=== PATIENT | male | born 2005 | race Caucasian/White ===

== ENCOUNTER 2024-03-29 22:40 | Emergency (ER) | payer SELFPAY ==
[2024-03-29 22:50] VITALS: BP 151/92; PULSE 65; RESP 17; TEMP 36.1; O2SAT 99
== END 2024-03-29 22:50 | disposition left against medical advice (07) ==
LOC: ANHED 23:56
DX: N50.812 Left testicular pain (principal); N50.811 Right testicular pain
CPT/HCPCS: 99199

== ENCOUNTER 2024-03-31 15:25 | Emergency (ER) | payer SELFPAY ==
--- NOTE | ~2024-03-31 | US_ITS ---
EXAMINATION: US scrotum doppler DATE: 03/31/2024 16:14 INDICATION: right sided testicular pain . TECHNIQUE: Grayscale and Doppler ultrasound images of the testes were obtained. COMPARISON: None. FINDINGS: The right testis measures cm. The left testis measures cm. No testicular mass. There is sli ghtly increased vascularity in the right testicle. The right epididymis is enlarged with increased va scular flow. The left epididymis is normal with normal vascular flow. Tiny left epididymal cyst. Ther e is no varicocele. Small right hydrocele. IMPRESSION: Right epididymitis. Increased vascular flow in the right testicle could be reactive hyperemia or cy y orchitis. Small right hydrocele. Reviewed, dictated and finalized at location [facility]. IMPRESSION: Right epididymitis. Increased vascular flow in the right testicle could be reac tive hyperemia or early orchitis. Small right hydrocele.
[2024-03-31 15:49] VITALS: BP 144/89; PULSE 71; RESP 16; TEMP 36.8; O2SAT 98
[2024-03-31 18:32] LABS: Add Urine Microscopic? NO; Appearance Urine Clear (Clear); Bilirubin Urine Negative (Negative); Blood Urine Negative (Negative); Color Urine Yellow (Yellow); Glucose Urine UA Negative (Negative); Ketones Urine Negative (Negative); Leukocyte Esterase Ur Negative LEU/UL (Negative); Nitrate Urine Negative (Negative); Protein Urine Negative (Negative); Specific Grav Ur 1.008 (1.001-1.035); Urobilinogen Urine 0.2 mg/dL (<2.0); pH Urine 7.5 (5.0-9.0)
--- NOTE | 2024-03-31 18:35 | ED.MALEGU ---
HPI - Male Genitourinary General Chief complaint: Urogenital-Male Stated complaint: testicular pain Time Seen by Provider: 03/31/24 17:54 History of Present Illness HPI Narrative: This is a 19-year-old male with no pertinent past medical history who presents with right-sided testicular pain for the last few days. Patient is stating the pain comes and goes in waves. Not worse with any positional changes. Not associated with the dysuria, hematuria or difficulty in the restroom otherwise. Patient has no nausea, vomiting, fever, chills. No trauma to the area. Not sexually active. With otherwise is normal state of health. Related Data Allergies Allergy/AdvReac Type Severity Reaction Status Date / Time diphenhydramine Allergy Other Verified 03/29/24 22:55 [From Benadryl] Review of Systems Review of Systems: As reviewed above in HPI Exam Narrative: GENERAL: [Well-appearing, well-nourished, and in no acute distress.] HEAD: [Normocephalic, atraumatic.] EYES: [PERRLA and EOMI.] ENT: Nares clear, no rhinorrhea or epistaxis. Mucous membranes moist. NECK: Supple. CHEST: [Clear to auscultation. No respiratory distress.] HEART: [Regular rate and rhythm]. No murmur heard. [Normal peripheral pulses.] ABDOMEN: [Soft, nondistended], [nontender], [No rigidity or guarding] GENITOURINARY: The right testis is slightly lower lying on the left but no tenderness on palpation of the epididymis or the testis itself. No hernias appreciated the inguinal canal. No swelling, redness, or overlying erythema. No discharge from the penile shaft. EXTREMITIES: Normal range of motion. [No edema.] SKIN: Warm, dry, no rash. NEURO: [No focal deficits]. Alert and oriented [x3.] PSYCH: [Normal mood and affect.] Course Vital Signs Vital signs: Vital Signs Temperature 36.8 C 03/31/24 15:49 Pulse Rate 71 03/31/24 15:49 Respiratory Rate 16 03/31/24 15:49 Blood Pressure 144/89 H 03/31/24 15:49 Pulse Oximetry 98 03/31/24 15:49 Oxygen Delivery Room Air 03/31/24 15:49 Temperature 36.8 C 03/31/24 15:49 Pulse Rate 71 03/31/24 15:49 Respiratory Rate 16 03/31/24 15:49 Blood Pressure 144/89 H 03/31/24 15:49 Pulse Oximetry 98 03/31/24 15:49 Oxygen Delivery Room Air 03/31/24 15:49 MDM - Male Genitourinary MDM Narrative Medical decision making narrative: This is a 19-year-old male presenting with right-sided intermittent testicular pain. His examination is very reassuring without any concerning features or findings such as torsion, overlying cellulitis or infection. Differential diagnosis includes epididymitis, orchitis, hydrocele, low suspicion torsion. An ultrasound of the scrotum was obtained immediately and urinalysis and gonorrhea chlamydia screening was ordered. Urinalysis was reassuring without any overt signs of infection. Ultrasound showed right epididymitis with increased vascular flow consistent with hyperemia or early orchitis but small right-sided hydrocele was noted. Patient was evaluated and had improvement in his pain prior to arrival and does not have any pain presently on examination. I informed him of his workup findings and will treat him with outpatient antibiotics as well providing him a dose of Rocephin IM here. Patient understood the instructions to take his antibiotics until completion and follow-up with his primary care provider on outpatient basis. Medical Records Attestation: I reviewed the patient's medical records. Lab Data Attestation: I reviewed the patient's lab results. Labs: Lab Results 03/31/24 Range/Units 18:25 Urine Color Yellow (Yellow) Urine Appearance Clear (Clear) Urine pH 7.5 (5.0-9.0) Ur Specific [place] 1.008 (1.001-1.035) Urine Protein Negative (Negative) mg/dL Urine Glucose (UA) Negative (Negative) mg/dL Urine Ketones Negative (Negative) mg/dL Ur Blood (Man) Negative (Negative) Urine Nitrate Negative (Negative)
[2024-03-31] MEDS: DOXYCYCLINE HYCLATE 100 MG TABLET PO (19:45)
[2024-03-31] MEDS: cefTRIAXone 1 GM VIAL 0.5 GM IM (19:45)
[2024-03-31] MEDS: LIDOCAINE HCL 1% LOCAL INJ 10 ML VIAL 2.1 ML INFILTRATE (19:46)
[2024-03-31 19:49] VITALS: RESP 18
[2024-03-31 20:03] LABS: Chlamydia trachomatis NOT DETECTED (NOT DETECTE); Neisseria gonorrhoeae PCR NOT DETECTED (NOT DETECTE)
== END 2024-03-31 19:53 | disposition home or self-care (01) ==
PROVIDERS: Physician Assistant; Emergency Provider Student in an Organized Health Care Education/Training Program
DX: N45.3 Epididymo-orchitis (principal)
CPT/HCPCS: 76870; 81003; 87491; 87591; 93976; 96372; 99284; A9270; J0696